=== PATIENT | female | born 1935 | race Hispanic/Latino ===

== ENCOUNTER 2018-07-02 09:22 | Outpatient (CLI) | payer MEDICARE | END 2018-07-02 09:23 | disposition home or self-care (01) | LOC: LAB 09:22 ==

== ENCOUNTER 2018-08-19 13:59 | Emergency (ER) | payer MEDICARE ==
[2018-08-19 14:09] VITALS: BMI 32.2
[2018-08-19] MEDS ORDERED: TDAP Vaccine 0.5 mL Syr IM ONE (14:16)
[2018-08-19] MEDS ORDERED: Bacitracin 500 Units/gm Oint Foilpak UD TOP STA (14:28)
[2018-08-19] MEDS ORDERED: Lidocaine 1% Inj (20ml) INFIL STA (14:28)
[2018-08-19 14:37] LABS: BASO # 0.03 K/mm3 (0.0-2.0); BASO % 0.3 % (0.0-3.0); EOS # 0.4 (0.0-0.7); EOS % 4.3 % (1.5-5.0); HEMOGLOBIN 12.9 g/dL (12.0-16.0); LYMPH # 3.6 (1.2-3.4); LYMPH % 41.4 % (22.0-35.0); MEAN CELL VOLUME 84.6 fl (80.0-105.0); MEAN CORPUSCULAR HEMOGLOBIN 27.5 pg (25.0-35.0); MEAN CORPUSCULAR HGB CONC 32.5 g/dl (31.0-37.0); MEAN PLATELET VOLUME 8.6 fl (7.0-11.0); MONO # 0.3 (0.1-0.6); MONO % 3.8 % (1.0-6.0); RBC 4.69 10^6/uL (3.5-6.1); RED CELL DISTRIBUTION WIDTH 14.3 % (11.5-14.5); WHITE BLOOD COUNT 8.8 10^3/uL (4.5-11.0)
[2018-08-19 14:43] LABS: PARTIAL THROMBOPLASTIN TIME 30.2 Seconds (26.9-38.3); PROTHROMBIN TIME 11.3 SECONDS (9.4-12.5)
--- NOTE | 2018-08-19 14:44 | ED PDOC ---
Arrival/HPI - General Chief Complaint: Trauma Time Seen by Provider: 08/19/18 14:09 Historian: Patient - History of Present Illness Narrative History of Present Illness (Text): 08/19/18 14:09 Neha Pollard is an 83 year old female, with a past medical history of kidney stones, who presents to the emergency department with head pain and scalp laceration s/p mechanical fall prior to arrival. Patient informs she was walking into a friend's house when she tripped on the first step. Patient denies taking blood thinners other than baby aspirin daily. Patient has not had tetanus shot. Patient denies loss of consciousness, weakness, headache, dizziness, vision changes, shortness of breath, nausea, vomiting, diarrhea, urinary or bowel changes / incontinence, back pain, neck pain, or any other complaint. 08/19/18 19:02 Time/Duration: Prior to Arrival Symptom Onset: Sudden Symptom Course: Unchanged Activities at Onset: Light Context: Walking (tripped on step entering friend's house) Past Medical History - Provider Review Nursing Documentation Reviewed: Yes - Infectious Disease Hx of Infectious Diseases: None - Cardiac Hx Hypertension: Yes Hx Pacemaker: No - Neurological Hx Paralysis: No - Hematological/Oncological Hx Blood Transfusions: No - Musculoskeletal/Rheumatological Hx Musculoskeletal Disorders: No - Psychiatric Hx Emotional Abuse: No Hx Physical Abuse: No Hx Substance Use: No - Surgical History Hx Cholecystectomy: Yes - Anesthesia Hx Anesthesia: Yes Hx Anesthesia Reactions: No Hx Malignant Hyperthermia: No Family/Social History - Physician Review Nursing Documentation Reviewed: Yes Family/Social History: No Known Family HX Smoking Status: Former Smoker Hx Alcohol Use: No Hx Substance Use: No Allergies/Home Meds Allergies/Adverse Reactions: Allergies No Known Allergies Allergy (Verified 08/19/18 14:10) Home Medications: Home Meds Medication Instructions Recorded Confirmed Aspirin [[place] Aspirin] 81 mg PO DAILY 08/12/18 08/19/18 Cholecalciferol (Vitamin D3) 1,000 unit PO DAILY 08/12/18 08/19/18 [Vitamin D3] Cyanocobalamin/Folic AC/Vit B6 1 tab PO DAILY 08/12/18 08/19/18 [Folbic 2 mg-2.5 mg-25 mg] Furosemide [Lasix] 20 mg PO DAILY 08/12/18 08/19/18 GlipiZIDE [Glucotrol] 2.5 mg PO DAILY 08/12/18 08/19/18 Lisinopril [Zestril] 20 mg PO DAILY 08/12/18 08/19/18 Metoprolol Succinate [Toprol Xl] 50 mg PO DAILY 08/12/18 08/19/18 Oxybutynin [Oxybutynin Chloride] 5 mg PO Q12 08/12/18 08/19/18 Pravastatin Sodium [Pravachol] 20 mg PO DAILY 08/12/18 08/19/18 Review of Systems - Review of Systems Eyes: absent: Vision Changes Respiratory: absent: SOB, Cough, Sputum, Wheezing Cardiovascular: absent: Chest Pain, Palpitations, Calf Pain, GIL, Orthopnea, Syncope Gastrointestinal: absent: Diarrhea, Nausea, Vomiting Genitourinary Female: absent: Dysuria, Frequency, Urine Output Changes Musculoskeletal: absent: Back Pain, Neck Pain Skin: Laceration. absent: Rash Neurological: absent: Headache, Dizziness, Focal Weakness, Gait Changes, Facial Droop, Disequilibrium, Seizure, Other (no loss of consciousness) Endocrine: absent: Diaphoresis Physical Exam Vital Signs Reviewed: Yes Vital Signs Temp Pulse Resp BP Pulse Ox 08/19/18 14:10 97.5 F L 58 L 18 135/98 H 97 Temperature: Afebrile Blood Pressure: Normal Pulse: Bradycardic Respiratory Rate: Normal Appearance: Positive for: Well-Appearing, Non-Toxic, Comfortable Pain Distress: None Mental Status: Positive for: Alert and Oriented X 3 - Systems Exam Head: Present: Normocephalic, Laceration (5cm laceration along hairline to R forehead) Pupils: Present: PERRL Extroacular Muscles: Present: EOMI Conjunctiva: Present: Normal Ears: Present: NORMAL TM Mouth: Present: Moist Mucous Membranes Neck: Present: Normal Range of Motion. No: MIDLINE TENDERNESS Respiratory/Chest: Present: Clear to Auscultation, Good Air Exchange. No: Respiratory Distress, Accessory Muscle Use, Tender to Palpation Cardiovascular: Present: Regular Rate and Rhythm, Normal S1, S2. No: Murmurs Abdomen: No: Tenderness, Distention, Peritoneal Signs Back: Present: Normal Inspection. No: Midline Tenderness Upper Extremity: Present: Normal Inspection. No: Cyanosis, Edema Lower Extremity: Present: Other (bruising to right knee, no bony hip tenderness, Normal ROM at hip). No: Edema Neurological: Present: GCS=15, CN II-XII Intact, Speech Normal Skin: Present: Warm, Dry, Normal Color. No: Rashes Psychiatric: Present: Alert, Oriented x 3, Normal Insight, Normal Concentration Medical Decision Making ED Course and Treatment: 08/19/18 14:09 Impression: Patient is an 83 year old female who presents to the emergency department with head pain and scalp laceration s/p mechanical fall prior to arrival. Pt denies loss of consciousness or any other injury. Differential Diagnosis included but are not limited to: Plan: -- CT Head w/o Contrast -- R. Knee X-Ray 2 Views -- Labs -- Bacitracin -- TDAP Vaccine -- Lidocaine 1% -- Tylenol 325mg -- Reassess and disposition Prior Visits: Notes and results from previous visits were reviewed. Progress Notes 08/19/18 14:50 PROCEDURE: LACERATION REPAIR Performed by the emergency provider Location: scalp Length: 5 cm Description: clean wound edges, no foreign bodies Distal CMS: Normal. No deficits. Neurovascularly intact. Anesthesia: Lidocaine 1% Preparation: The wound was cleaned with NS and [place]. The area was prepped a nd draped in the usual sterile fashion. Exploration: The wound was explored and no foreign bodies were found. Procedure: The wound was closed.. There was good approximation In total, 10 were used. Post-Procedure: Good closure and hemostasis. The patient tolerated the procedure well and there were no complications. CSM remains intact. Galea intact. Post procedure dressing applied. 08/19/18 15:[address] Olmos who is bedside evaluating patient and reports that patient can be discharged if imaging ordered is negative. 08/19/18 17:13 CT head negative for hemorrhage. Knee xray shows degnerative changes but no acute pathology. Patient ambulating around the ED without issue. Aware of need to follow-up for suture removal 08/19/18 19:05 - RAD Interpretation Narrative RAD Interpretations (Text): 08/19/18 15:17 CT Head w/o contrast shows: FINDINGS: HEMORRHAGE: No intracranial hemorrhage. BRAIN: No mass effect or edema. No atrophy or chronic microvascular ischemic changes. VENTRICLES: Unremarkable. No hydrocephalus. CALVARIUM: Unremarkable. PARANASAL SINUSES: Unremarkable as visualized. No significant inflammatory changes. MASTOID AIR CELLS: Unremarkable as visualized. No inflammatory changes. OTHER FINDINGS: None. IMPRESSION: No evidence of acute intracranial hemorrhage intracranial collection mass effect or midline shift. Radiology Orders: 08/19/18 14:16 HEAD W/O CONTRAST [CT] Stat KNEE RIGHT 2 VIEWS (AP & LAT) [RAD] Stat Policy Service Coordinator: Radiologist - Medication Orders Current Medication Orders: Discontinued Medications Acetaminophen (Tylenol 325mg Tab) 650 mg PO STAT STA Stop: 08/19/18 14:17 Bacitracin (Bacitracin) 1 ea TOP STAT STA Stop: 08/19/18 14:29 Lidocaine HCl (Lidocaine 1% (20ml)) 10 ml INFIL STAT STA Stop: 08/19/18 14:29 Tetanus/Reduced Diphtheria/Acell Pertussis (Boostrix Vaccine Inj) 0.5 ml IM .ONCE ONE Stop: 08/19/18 14:17 - Scribe Statement The provider has reviewed the documentation as recorded by the Scribe Gino Emery All medical record entries made by the Scribe were at my direction and personally dictated by me. I have reviewed the chart and agree that the record accurately reflects my personal performance of the history, physical exam, medical decision making, and the department course for this patient. I have also personally directed, reviewed, and agree with the discharge instructions and disposition. Disposition/Present on Arrival - Present on Arrival Any Indicators Present on Arrival: No History of DVT/PE: No History of Uncontrolled Diabetes: No Urinary Catheter: No History of Decub. Ulcer: No History Surgical Site Infection Following: None - Disposition Have Diagnosis and Disposition been Completed?: Yes Diagnosis: Fall, Head trauma, Knee contusion Disposition: HOME/ ROUTINE Disposition Time: 16:51 Patient Plan: Discharge Condition: GOOD Discharge Instructions (ExitCare): Preventing Falls in the Older Adult, Closed Head Injury, Preventing Falls Additional Instructions: Follow-up with Dr. Olmos within 2 days. Return to ED if condition worsens. You need stitches removed in 7-10 days. Referrals: Magui Olmos MD [Primary Care Provider] - Follow up with primary Forms: [employer] ([place])
[2018-08-19 14:46] LABS: ALB/GLOB RATIO 1.1 (1.1-1.8); ALBUMIN 4.1 g/dL (3.0-4.8); CALCIUM 9.4 mg/dL (8.4-10.5)
--- NOTE | 2018-08-19 15:21 | CT ---
Date of service: 08/19/2018 PROCEDURE: CT HEAD WITHOUT CONTRAST. HISTORY: fall, head trauma COMPARISON: None available. TECHNIQUE: Axial computed tomography images were obtained through the head/brain without intravenous contrast. Radiation dose: Total exam DLP = 978.77 mGy-cm. This CT exam was performed using one or more of the following dose reduction techniques: Automated exposure control, adjustment of the mA and/or kV according to patient size, and/or use of iterative reconstruction technique. FINDINGS: HEMORRHAGE: No intracranial hemorrhage. BRAIN: No mass effect or edema. No atrophy or chronic microvascular ischemic changes. VENTRICLES: Unremarkable. No hydrocephalus. CALVARIUM: Unremarkable. PARANASAL SINUSES: Unremarkable as visualized. No significant inflammatory changes. MASTOID AIR CELLS: Unremarkable as visualized. No inflammatory changes. OTHER FINDINGS: None. IMPRESSION: No evidence of acute intracranial hemorrhage intracranial collection mass effect or midline shift.
[2018-08-19 15:57] VITALS: O2SAT 98
[2018-08-19 17:27] VITALS: BP 145/82; PULSE 53; RESP 18; TEMP 98.1
--- NOTE | 2018-08-19 18:51 | RAD ---
Date of service: 08/19/2018 PROCEDURE: Right Knee Radiographs. HISTORY: R knee pain after fall COMPARISON: None. FINDINGS: BONES: No acute fracture. Proliferative hypertrophic changes emanating from the femoral condyle and tibial plateau regions. JOINTS: Lateral compartment narrowing and to lesser extent patellofemoral narrowing, degenerative change JOINT EFFUSION: No appreciable joint effusion. OTHER FINDINGS: None. IMPRESSION: Degenerative changes common no acute findings. Concordant results with the preliminary interpretation rendered by the emergency department physician procedure.
== END 2018-08-19 17:18 | disposition home or self-care (01) ==
LOC: ED 13:59
DX: S01.01XA Laceration without foreign body of scalp, initial encounter (principal); S80.01XA Contusion of right knee, initial encounter; W10.9XXA Fall (on) (from) unspecified stairs and steps, initial encounter; Y92.89 Other specified places as the place of occurrence of the external cause; I10 Essential (primary) hypertension; Z87.891 Personal history of nicotine dependence; Z23 Encounter for immunization

== ENCOUNTER 2018-08-31 09:02 | Emergency (ER) | payer MEDICARE | END 2018-08-31 10:37 | disposition home or self-care (01) | LOC: ED 09:02 ==